=== PATIENT | male | born 1980 | race Caucasian/White ===

== ENCOUNTER 2016-07-06 20:10 | Emergency (ER) | payer OTHER ==
[2016-07-06 20:37] VITALS: BP 118/50
[2016-07-06] MEDS ORDERED: Amoxicillin/Clavulanate TAB* 875 MG PO ONE (20:48)
--- NOTE | 2016-07-07 17:34 | UC ---
Loly Keen Erika, scribed for Darlene Bledsoe MD on 07/06/16 at 2045 . Ear Complaint HPI - HPI Summary HPI Summary: Patient is a 36-year-old male presenting to [facility] with a CC of right ear pain for the past 5 days. Pt states pain was initially in the left ear but is now completely in the right ear. He reports that he initially had URI symptoms including cough. These symptoms have fully resolved. Pt denies fever, nausea, vomiting, diarrhea, and rashes. - History of Current Complaint Chief Complaint: UCEar Stated Complaint: EAR ACHE Time Seen by Provider: 07/06/16 20:39 Hx Obtained From: Patient Onset/Duration: Gradual Onset, Lasting Days, Still Present Severity Currently: Moderate Pain Intensity: 5 - Throbbing Pain Scale Used: 0-10 Numeric Aggravating Factors: Nothing Alleviating Factors: Nothing Associated Signs/Symptoms: Positive: URI Symptoms - resolved - Allergies/Home Medications Allergies/Adverse Reactions: Allergies Allergy/AdvReac Type Severity Reaction Status Date / Time No Known Allergies Allergy Verified 06/14/15 11:07 PMH/Surg Hx/FS Hx/Imm Hx Previously Healthy: Yes - Surgical History Surgery Procedure, Year, and Place: I&D - Family History Known Family History: Positive: Other - Stroke Negative: Diabetes - Social History Occupation: Employed Full-time Lives: With Family Alcohol Use: None Alcohol Amount: Once a week Substance Use Type: None Smoking Status (MU): Never Smoked Tobacco Have You Smoked in the Last Year: No When Did the Patient Quit Smoking/Using Tobacco: 2010 - Immunization History Most Recent Influenza Vaccination: Season Review of Systems Constitutional: Negative Skin: Negative Eyes: Negative ENT: Ear Ache - right side Respiratory: Cough - and URI symptoms, all resolved Cardiovascular: Negative Gastrointestinal: Negative Genitourinary: Negative Motor: Negative Neurovascular: Negative Musculoskeletal: Negative Neurological: Negative Psychological: Negative All Other Systems Reviewed And Are Negative: Yes Physical Exam Triage Information Reviewed: Yes Appearance: No Pain Distress, Well-Nourished, Ill-Appearing - Mild Vital Signs: Initial Vital Signs Temp 98.5 F 07/06/16 20:31 Pulse 59 07/06/16 20:31 Resp 16 07/06/16 20:31 BP 118/50 07/06/16 20:31 Pulse Ox 100 07/06/16 20:31 Vital Signs Reviewed: Yes Eyes: Positive: Conjunctiva Clear ENT: Positive: Hearing grossly normal, Pharyngeal erythema, TM red - right, Other: - left TM normal Neck: Positive: Supple, Nontender, No Lymphadenopathy Respiratory: Positive: Lungs clear, Normal breath sounds, No respiratory distress Cardiovascular: Positive: RRR, No Murmur, Pulses Normal, Brisk Capillary Refill Musculoskeletal: Positive: Strength Intact, ROM Intact Neurological: Positive: Alert, Muscle Tone Normal Psychological Exam: Normal Skin Exam: Normal Ear Complaint Course/Dx - Differential Dx/Diagnosis Differential Diagnosis/HQI/PQRI: Bronchitis, Otitis Externa, Otitis Media, URI Provider Diagnoses: right OM, acute Discharge - Discharge Plan Condition: Stable Disposition: HOME Prescriptions: Amoxicillin/Clavulanate TAB* [Augmentin TAB 875*] 875 mg PO BID #20 tab Patient Education Materials: Otitis Media (ED) Referrals: Karlie Lynch MD [Primary Care Provider] - The documentation as recorded by the Loly lang Erika accurately reflects the service I personally performed and the decisions made by Rakan danielle Barbara J, MD.
== END 2016-07-06 21:02 | disposition home or self-care (01) ==
LOC: UCEAST 20:10
DX: H66.91 Otitis media, unspecified, right ear (principal)
CPT/HCPCS: 99212; A9270-GY; G0463

== ENCOUNTER 2016-07-25 16:22 | Emergency (ER) | payer OTHER ==
[2016-07-25 16:42] VITALS: BP 107/61
--- NOTE | 2016-07-25 16:47 | UC ---
Ear Complaint HPI - HPI Summary HPI Summary: recently treated with Augmentin for ear infection ---everything got better but now has return of slight ear discomfort in the right - History of Current Complaint Chief Complaint: UCEar Stated Complaint: EAR PAIN Time Seen by Provider: 07/25/16 16:45 Hx Obtained From: Patient Onset/Duration: Gradual Onset, Lasting Days, Still Present Severity Initially: Mild Severity Currently: Mild Pain Intensity: 1 Pain Scale Used: 0-10 Numeric Alleviating Factors: Other (Noted In Comments) - Allergies/Home Medications Allergies/Adverse Reactions: Allergies Allergy/AdvReac Type Severity Reaction Status Date / Time No Known Allergies Allergy Verified 06/14/15 11:07 PMH/Surg Hx/FS Hx/Imm Hx Previously Healthy: Yes Endocrine History Of: Denies: Diabetes, Thyroid Disease Cardiovascular History Of: Denies: Cardiac Disorders, Hypertension Respiratory History Of: Denies: COPD, Asthma GI/ History Of: Denies: Ulcer - Surgical History Surgical History: None Surgery Procedure, Year, and Place: I&D - Family History Known Family History: Positive: Other - Stroke Negative: Diabetes - Social History Occupation: Employed Full-time Lives: With Family Alcohol Use: None Alcohol Amount: Once a week Substance Use Type: None Smoking Status (MU): Never Smoked Tobacco Have You Smoked in the Last Year: No When Did the Patient Quit Smoking/Using Tobacco: 2010 - Immunization History Most Recent Influenza Vaccination: Season Review of Systems Constitutional: Negative Skin: Negative Eyes: Negative ENT: Ear Ache Respiratory: Negative Cardiovascular: Negative Gastrointestinal: Negative Genitourinary: Negative Motor: Negative Neurovascular: Negative Musculoskeletal: Negative Neurological: Negative Psychological: Negative All Other Systems Reviewed And Are Negative: Yes Physical Exam Triage Information Reviewed: Yes Appearance: Well-Appearing, No Pain Distress, Well-Nourished Vital Signs: Initial Vital Signs Temp 98.0 F 07/25/16 16:36 Pulse 52 07/25/16 16:36 Resp 16 07/25/16 16:36 BP 107/61 07/25/16 16:36 Pulse Ox 100 07/25/16 16:36 Eye Exam: Normal Eyes: Positive: Conjunctiva Clear ENT Exam: Normal ENT: Positive: Normal ENT inspection, Hearing grossly normal, Pharynx normal, TMs normal. Negative: Nasal congestion, Nasal drainage, Tonsillar swelling, Tonsillar exudate, Trismus, Muffled/hoarse voice Dental Exam: Normal Neck exam: Normal Neck: Positive: Supple, Nontender, No Lymphadenopathy Respiratory Exam: Normal Respiratory: Positive: Chest non-tender, Lungs clear, Normal breath sounds, No respiratory distress, No accessory muscle use Cardiovascular Exam: Normal Cardiovascular: Positive: RRR, No Murmur, Pulses Normal, Brisk Capillary Refill Musculoskeletal Exam: Normal Musculoskeletal: Positive: Strength Intact, ROM Intact, No Edema Neurological Exam: Normal Neurological: Positive: Alert, Muscle Tone Normal Psychological Exam: Normal Skin Exam: Normal Ear Complaint Course/Dx - Course Course Of Treatment: ibuprofen sudafed, follow with pcp - Differential Dx/Diagnosis Differential Diagnosis/HQI/PQRI: Otitis Externa, Otitis Media, URI Provider Diagnoses: earache (r) Discharge - Discharge Plan Condition: Stable Disposition: HOME Patient Education Materials: Ibuprofen (By mouth), Pseudoephedrine (By mouth), Earache (ED) Referrals: Karlie Lynch MD [Primary Care Provider] - If Needed
== END 2016-07-25 17:13 | disposition home or self-care (01) ==
LOC: UCEAST 16:22
DX: H92.01 Otalgia, right ear (principal)
CPT/HCPCS: 99211; G0463

== ENCOUNTER 2019-02-24 11:22 | Emergency (ER) | payer OTHER ==
[2019-02-24 11:46] VITALS: BP 123/70
--- NOTE | 2019-02-24 12:01 | UC ---
Abdominal Pain Male HPI - HPI Summary HPI Summary: He complains of 2-3 days of suprapubic discomfort, urinary frequency and dysuria. He denies any fever or chills, back pain or nausea and vomiting. He has a history of having urinary tract infections. He is and monogamous. - History of Current Complaint Chief Complaint: UCGU Stated Complaint: URINARY ISSUE Time Seen by Provider: 02/24/19 11:49 Pain Intensity: 4 - Allergies/Home Medications Allergies/Adverse Reactions: Allergies Allergy/AdvReac Type Severity Reaction Status Date / Time No Known Allergies Allergy Verified 02/24/19 11:40 Home Medications: Home Medications NK [No Home Medications Reported] 02/24/19 [History Confirmed 02/24/19] PMH/Surg Hx/FS Hx/Imm Hx Previously Healthy: Yes - Surgical History Surgical History: None Surgery Procedure, Year, and Place: I&D - Family History Known Family History: Positive: Other - Stroke Negative: Diabetes - Social History Alcohol Use: None Alcohol Amount: Once a week Substance Use Type: None Smoking Status (MU): Never Smoked Tobacco Have You Smoked in the Last Year: No When Did the Patient Quit Smoking/Using Tobacco: 2010 - Immunization History Most Recent Influenza Vaccination: Season Review of Systems All Other Systems Reviewed And Are Negative: Yes Constitutional: Positive: Negative Gastrointestinal: Positive: Abdominal Pain - Suprapubic Genitourinary: Positive: Dysuria, Frequency Physical Exam - Summary Physical Exam Summary: He is nontoxic in appearance with stable vitals Triage Information Reviewed: Yes Appearance: Well-Appearing Vital Signs: Initial Vital Signs Temp 97.9 F 02/24/19 11:40 Pulse 72 02/24/19 11:40 Resp 18 02/24/19 11:40 BP 123/70 02/24/19 11:40 Pulse Ox 100 02/24/19 11:40 Vital Signs Reviewed: Yes ENT Exam: Normal Respiratory Exam: Normal Cardiovascular Exam: Normal Abdominal Exam: Normal Bowel Sounds: Positive: Present Male Genital Exam: Positive: Normal Genitalia, No Hernia, Inguinal Tenderness. Negative: Epididymal Tenderness, Testicular Tenderness (R), Testicular Tenderness (L), Urethral Discharge Abd Pain Male Course/Dx - Course Course Of Treatment: I'm not sure of the etiology of his symptoms. His urine has a small amount of microscopic blood and has been sent to the lab for culture. He is tender in the left inguinal area. I don't feel a hernia. 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 I recommended rest and follow-up with his PCP if not improved in the next 3 or 4 days. - Differential Dx/Clinical Impression Provider Diagnosis: Left inguinal pain Discharge ED - Sign-Out/Discharge Documenting (check all that apply): Patient Departure All imaging exams completed and their final reports reviewed: No Studies - Discharge Plan Condition: Stable Disposition: HOME Patient Education Materials: Groin Pain (ED) Referrals: Yamilex Rivers MD [Primary Care Provider] - - Billing Disposition and Condition Condition: STABLE Disposition: Home
== END 2019-02-24 12:35 | disposition home or self-care (01) ==
LOC: UCEAST 11:22
DX: R10.32 Left lower quadrant pain (principal); R30.0 Dysuria; R35.0 Frequency of micturition; Z87.440 Personal history of urinary (tract) infections
CPT/HCPCS: 81003; 87086; 99211; G0463